=== PATIENT | female | born 1980 | race African-American/Black ===

== ENCOUNTER 2017-03-09 01:01 | Emergency (ER) | payer MEDICARE, MEDICAID ==
[2017-03-09 01:22] LABS: ABSOLUTE EOSINOPHILS # (AUTO) 0.1 10^3/uL (0.0-0.6); ABSOLUTE LYMPHOCYTES (AUTO) 1.8 10^3/uL (0.5-4.7); ABSOLUTE MONOCYTES (AUTO) 0.4 10^3/uL (0.1-1.4); ABSOLUTE NEUT (AUTO) 1.8 10^3/uL (1.7-8.2); BASOPHILS % (AUTO) 0.5 % (0-2); EOSINOPHILS % (AUTO) 1.2 % (0-6); HEMATOCRIT 34.6 % (36.0-47.0); HEMOGLOBIN 10.7 g/dL (12.0-15.5); HGB HCT DIFFERENCE -2.5; LYMPHOCYTES % (AUTO) 45.1 % (13-45); MEAN CORPUSCULAR HEMOGLOBIN 23.4 pg (27.0-33.4); MEAN CORPUSCULAR VOLUME 76 fl (80-97); MONOCYTES % (AUTO) 9.2 % (3-13); RED BLOOD COUNT 4.58 10^6/uL (3.72-5.28); RED CELL DISTRIBUTION WIDTH 16.5 % (11.5-14.0); WHITE BLOOD COUNT 4.1 10^3/uL (4.0-10.5)
[2017-03-09 01:37] LABS: ALANINE AMINOTRANSFERASE 21 U/L (9-52); ALBUMIN 4.4 g/dL (3.5-5.0); ALKALINE PHOSPHATASE 43 U/L (38-126); ANION GAP 11 (5-19); ASPARTATE AMINO TRANSFERASE 19 U/L (14-36); BILIRUBIN,DIRECT 0.2 mg/dL (0.0-0.4); BILIRUBIN,TOTAL 0.3 mg/dL (0.2-1.3); BLOOD UREA NITROGEN 9 mg/dL (7-20); CALCIUM 9.8 mg/dL (8.4-10.2); CARBON DIOXIDE 23 mmol/L (22-30); CHLORIDE 105 mmol/L (98-107); CREATININE RESULT 1.09 mg/dL (0.52-1.25); GLUCOSE 127 mg/dL (75-110); LIPASE 128.5 U/L (23-300); POTASSIUM 4.2 mmol/L (3.6-5.0); SODIUM 139.1 mmol/L (137-145); TOTAL PROTEIN 7.5 g/dL (6.3-8.2)
--- NOTE | 2017-03-09 01:47 | ER Document Report ---
ED GI/ - General Chief Complaint: Abdominal Pain Stated Complaint: ABDOMINAL PAIN Time Seen by Provider: 03/09/17 01:46 Mode of Arrival: Ambulatory Information source: Patient Notes: 36-year-old female complaining of lower abdominal pain since Wednesday. It is persistent and waxes and wanes. Some vaginal discharge without odor. No urinary frequency urgency. No fever or chills. No nausea vomiting or diarrhea. No history of ovarian cyst diverticulitis Crohn's or colitis. No abdominal surgeries. TRAVEL OUTSIDE OF THE [place] IN LAST 30 DAYS: No - Related Data Allergies/Adverse Reactions: codeine [Codeine] Allergy (Verified 02/20/14 12:00) hydrocodone bitartrate [From Vicodin] Allergy (Verified 10/03/13 03:44) latex [Latex] Allergy (Verified 10/03/13 03:44) tramadol HCl [From Ultram] Allergy (Verified 10/03/13 03:44) fresh fruit Allergy (Uncoded 02/20/14 12:38) Past Medical History - General Information source: Patient - Social History Smoking Status: Current Every Day Smoker Chew tobacco use (# tins/day): No Frequency of alcohol use: Occasional Drug Abuse: None Lives with: Spouse/Significant other Family History: Other - asthma Patient has suicidal ideation: No Patient has homicidal ideation: No Neurological Medical History: Reports: Hx Migraine Renal/ Medical History: Denies: Hx Peritoneal Dialysis Surgical Hx: Negative - Immunizations Immunizations up to date: Yes Hx Diphtheria, Pertussis, Tetanus Vaccination: Yes Review of Systems - Review of Systems Constitutional: No symptoms reported EENT: No symptoms reported Cardiovascular: No symptoms reported Respiratory: No symptoms reported Gastrointestinal: No symptoms reported Genitourinary: No symptoms reported Female Genitourinary: See HPI Musculoskeletal: No symptoms reported Skin: No symptoms reported Hematologic/Lymphatic: No symptoms reported Neurological/Psychological: No symptoms reported Physical Exam - Vital signs Vitals: Temp Pulse Resp BP Pulse Ox 98.0 F 91 16 121/78 100 03/09/17 01:05 03/09/17 01:05 03/09/17 01:05 03/09/17 01:05 03/09/17 01:05 Interpretation: Normal - General General appearance: Appears well, Alert - HEENT Head: Normocephalic, Atraumatic Eyes: Normal Pupils: PERRL Neck: Supple. No: Lymphadenopathy - Respiratory Respiratory status: No respiratory distress Chest status: Nontender Breath sounds: Normal Chest palpation: Normal - Cardiovascular Rhythm: Regular Heart sounds: Normal auscultation Murmur: No - Abdominal Inspection: Normal Distension: No distension Bowel sounds: Normal Tenderness: Tender - Mild pelvis all the way across Organomegaly: No organomegaly - Back Back: Normal, Nontender. No: CVA tenderness - Extremities General upper extremity: Normal inspection, Nontender, Normal color, Normal ROM , Normal temperature General lower extremity: Normal inspection, Nontender, Normal color, Normal ROM , Normal temperature, Normal weight bearing. No: Juni's sign - Neurological Neuro grossly intact: Yes Cognition: Normal Orientation: AAOx4 [place] Coma Scale Eye Opening: Spontaneous [place] Coma Scale Verbal: Oriented Eriberto Coma Scale Motor: Obeys Commands Eriberto Coma Scale Total: 15 Speech: Normal Motor strength normal: LUE, RUE, LLE, RLE Sensory: Normal - Psychological Associated symptoms: Normal affect, Normal mood - Skin Skin Temperature: Warm Skin Moisture: Dry Skin Color: Normal Skin irregularity: negative: Rash Course - Vital Signs Vital signs: Temp Pulse Resp BP Pulse Ox 98.2 F 89 20 118/74 99 03/09/17 01:30 03/09/17 01:30 03/09/17 01:30 03/09/17 01:30 03/09/17 01:30 - Laboratory Result Diagrams: 03/09/17 01:10 03/09/17 01:10 Laboratory results interpreted by me: 03/09/17 03/09/17 03/09/17 01:10 01:10 01:30 Hgb 10.7 L Hct 34.6 L MCV 76 L MCH 23.4 L MCHC 31.0 L RDW 16.5 H Lymphocytes % 45.1 H Est GFR (Non-Af Amer) 57 L Glucose 127 H Urine Protein 30 H Urine Ketones TRACE H Urine Urobilinogen 2.0 H Ur Leukocyte Esterase LARGE H Discharge - Discharge Clinical Impression: Pelvic pain Condition: Good Disposition: HOME, SELF-CARE Instructions: Pelvic Pain ([facility]), Rocephin ([facility]), Azithromycin ([facility]) Additional Instructions: call me tonight after 7 p for the std culture results to er if worse urine culture is pending
[2017-03-09 02:06] LABS: APPEARANCE,URINE CLOUDY; BILIRUBIN,URINE NEGATIVE (NEGATIVE); GLUCOSE, URINE NEGATIVE (NEGATIVE); KETONES,URINE TRACE mg/dL (NEGATIVE); LEUKOCYTE ESTERASE,URINE LARGE (NEGATIVE); NITRITE,URINE NEGATIVE (NEGATIVE); PROTEIN,URINE 30 mg/dL (NEGATIVE); URINE SPECIFIC GRAVITY 1.023
[2017-03-09] MEDS ORDERED: AZITHROMYCIN 250 MG TABLET PO ONE (03:20)
[2017-03-09] MEDS ORDERED: ONDANSETRON 4 MG TAB.RAPDIS PO ONE (03:20)
[2017-03-09] MEDS ORDERED: LIDOCAINE 1% INJ-PF (10 MG/ML) 30 ML SDV INFIL ONE (03:20)
[2017-03-09] MEDS ORDERED: CEFTRIAXONE INJ 250 MG VIAL IM ONE (03:20)
[2017-03-09 04:03] VITALS: BP 125/74
[2017-03-09 04:20] LABS: CHLAM PCR NOT DETECTED (NOT DETECT)
== END 2017-03-09 04:00 | disposition home or self-care (01) ==
LOC: ER 01:01
DX: R10.2 Pelvic and perineal pain (principal); R10.9 Unspecified abdominal pain; F17.200 Nicotine dependence, unspecified, uncomplicated
CPT/HCPCS: 99284; 96372; 36415; 87086; 87210; 83690; 85025; 81025; 87088; 80053; 81001; 87186; 87491; 87591; A9270; J3490; J0696

== ENCOUNTER 2017-10-29 09:37 | Emergency (ER) | payer MEDICARE, MEDICAID ==
[2017-10-29] MEDS ORDERED: CEFTRIAXONE INJ 250 MG VIAL IM ONE (11:07)
[2017-10-29] MEDS ORDERED: IBUPROFEN 600 MG TABLET PO ONE (11:07)
[2017-10-29] MEDS ORDERED: LIDOCAINE 1% INJ-PF (10 MG/ML) 30 ML SDV INJ ONE (11:07)
[2017-10-29] MEDS ORDERED: AZITHROMYCIN 250 MG TABLET PO ONE (11:07)
--- NOTE | 2017-10-29 11:07 | ER Document Report ---
ED GI/ - General Chief Complaint: Vaginal Itching Stated Complaint: ABDOMINAL PAIN Time Seen by Provider: 10/29/17 10:21 Mode of Arrival: Ambulatory Information source: Patient Notes: 37-year-old female presents to ED for complaint of vaginal discharge with a white creamy colored discharge burning frequency and a dental pain on the left upper rear tooth. It is actually tooth #14 TRAVEL OUTSIDE OF THE [place] IN LAST 30 DAYS: No - HPI Patient complains to provider of: Pelvic pain, Vaginal discharge Onset: This afternoon - Dental pain month and a half pelvic pain and vaginal discharge 1-1/2 weeks Timing/Duration: Persistent Quality of pain: Burning, Sharp, Throbbing Severity at maximum: Moderate Severity in ED: Moderate Pain Level: 4 Location: Pelvis, Other - Dental Vaginal bleeding (Compared to normal period): None Associated symptoms: Vaginal discharge, Other - Dental vaginal and pelvic pain Exacerbated by: Movement, Food Relieved by: Denies Similar symptoms previously: Yes - Related Data Allergies/Adverse Reactions: codeine [Codeine] Allergy (Verified 02/20/14 12:00) hydrocodone bitartrate [From Vicodin] Allergy (Verified 10/03/13 03:44) latex [Latex] Allergy (Verified 10/03/13 03:44) tramadol HCl [From Ultram] Allergy (Verified 10/03/13 03:44) fresh fruit Allergy (Uncoded 02/20/14 12:38) Past Medical History - General Information source: Patient - Social History Smoking Status: Current Every Day Smoker Cigarette use (# per day): Yes - 5-7 Chew tobacco use (# tins/day): No Smoking Education Provided: Yes - 4 minutes Frequency of alcohol use: Social Drug Abuse: None Lives with: Friend Family History: Arthritis, Other - asthma Patient has suicidal ideation: No Patient has homicidal ideation: No - Past Medical History Cardiac Medical History: Reports: Hx Hypertension Pulmonary Medical History: Reports: None 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 Neurological Medical History: Reports: Hx Migraine Endocrine Medical History: Reports: None Renal/ Medical History: Reports: None Malignancy Medical History: Reports: None GI Medical History: Reports: None Musculoskeltal Medical History: Reports None Skin Medical History: Reports None Psychiatric Medical History: Reports: None Traumatic Medical History: Reports: None Infectious Medical History: Reports: None Surgical Hx: Negative Past Surgical History: Reports: None - Immunizations Immunizations up to date: Yes Hx Diphtheria, Pertussis, Tetanus Vaccination: Yes Review of Systems - Review of Systems Constitutional: No symptoms reported EENT: Dental problem - 14 Cardiovascular: No symptoms reported Respiratory: No symptoms reported Gastrointestinal: No symptoms reported Genitourinary: Discharge, Other - Pain Female Genitourinary: No symptoms reported Musculoskeletal: No symptoms reported Skin: No symptoms reported Hematologic/Lymphatic: No symptoms reported Neurological/Psychological: No symptoms reported Physical Exam - Vital signs Vitals: Temp Pulse Resp BP Pulse Ox 98.1 F 119 H 20 114/73 100 10/29/17 09:44 10/29/17 09:44 10/29/17 09:44 10/29/17 09:44 10/29/17 09:44 Interpretation: Normal - General General appearance: Appears well, Alert - HEENT Head: Normocephalic, Atraumatic Eyes: Normal Pupils: PERRL Ears: Normal External canal: Normal Tympanic membrane: Normal Sinus: Normal Nasal: Swelling, Clear rhinorrhea Mouth/Lips: Caries Teeth diagram: 1 - Cavity with redness surrounding the tooth tenderness to the tooth - Respiratory Respiratory status: No respiratory distress Chest status: Nontender Breath sounds: Normal Chest palpation: Normal - Cardiovascular Rhythm: Regular Heart sounds: Normal auscultation Murmur: No - Abdominal Inspection: Normal Distension: No distension Bowel sounds: Normal Tenderness: Nontender Organomegaly: No organomegaly - Genitourinary External exam: Normal Speculum exam: Vaginal discharge Notes: Patient self swabbed very minimal drainage noted no bleeding noted - Back Back: Normal, Nontender - Extremities General upper extremity: Normal inspection, Nontender, Normal color, Normal ROM , Normal temperature General lower extremity: Normal inspection, Nontender, Normal color, Normal ROM , Normal temperature, Normal weight bearing. No: Juni's sign - Neurological Neuro grossly intact: Yes Cognition: Normal Orientation: AAOx4 [place] Coma Scale Eye Opening: Spontaneous [place] Coma Scale Verbal: Oriented [place] Coma Scale Motor: Obeys Commands Eriberto Coma Scale Total: 15 Speech: Normal Motor strength normal: LUE, RUE, LLE, RLE Sensory: Normal - Psychological Associated symptoms: Normal affect, Normal mood - Skin Skin Temperature: Warm Skin Moisture: Dry Skin Color: Normal Course - Re-evaluation Re-evalutation: 10/29/17 21:36 Discussed labs with patient and written report of labs given to patient. Patient was treated with azithromycin and Rocephin in the ED. She was instructed to call to the ED for the results of her GC chlamydia but she did not cough. Are negative. Patient was treated for a UTI with Cipro and for trichomonas with Flagyl. - Vital Signs Vital signs: Temp Pulse Resp BP Pulse Ox 98.3 F 74 16 109/68 100 10/29/17 11:49 10/29/17 11:49 10/29/17 11:49 10/29/17 11:49 10/29/17 11:49 - Laboratory Laboratory results interpreted by me: 10/29/17 10:59 Urine Blood SMALL H Urine Urobilinogen 2.0 H Ur Leukocyte Esterase LARGE H Discharge - Discharge Clinical Impression: Pain due to dental caries, Pelvic pain, Vaginal discharge, Trichomonal cervicitis UTI (urinary tract infection) Qualifiers: Urinary tract infection type: site unspecified Hematuria presence: without hematuria Qualified Code(s): N39.0 - Urinary tract infection, site not specified Condition: Stable Disposition: HOME, SELF-CARE Instructions: Family Physicians / Practices Additional Instructions: TOOTHACHE: Your pain is due to dental decay. The tooth must be repaired in order for you to feel better. You will, therefore, be referred to a dentist. We do not have dentists on the staff at [facility]. Severe swelling or drainage around a tooth usually means a dental abscess. This also requires evaluation and treatment by the dentist, but antibiotics may be prescribed while awaiting dental treatment. You should be rechecked immediately if you develop major swelling of the face, increasing pain, a lump in the jaw or gums, headache, difficulty swallowing, or fever. VAGINITIS: Your exam shows that you have vaginitis, a vaginal infection. The infection can be caused by a many different organisms, including trichomonas or Gardnerella. The usual symptoms are vaginal irritation and discharge. The treatment is usually antibiotics such as Flagyl. Laboratory tests can determine which germ is responsible. Use the medication as prescribed. Because this infection can be transmitted sexually, your sexual partner may need to be checked and treated also. If your physician has not discussed this with you, please check before resuming sexual relations. If a culture shows gonorrhea or chlamydia, the infection must be reported to the health department. Call the doctor if you develop pelvic pain, fever, or problems with urination, or if you don't improve as expected. VAGINAL TRICHOMONAS INFECTION: Trichomoniasis is infection of the vagina or male genital tract with Trichomonas vaginalis. It can be asymptomatic or cause urethritis, vaginitis, or occasionally cystitis, epididymitis, or prostatitis. Diagnosis is by microscopic examination of vaginal or prostatic secretions or by urethral culture. Patients and sex partners are treated with metronidazole. T. vaginalis is a flagellated, sexually transmitted protozoan that more often infects women (about 20% of women of reproductive age) than men. Infection may be asymptomatic in either sex, but asymptomatic is the rule for men. In men, protozoa may persist for long periods in the tract without causing symptoms; thus, protozoa may be transmitted unwittingly to sex partners. Trichomoniasis may account for up to 5% of nongonococcal, nonchlamydial urethritis in men in some areas. Co-infection with gonorrhea and other sexually transmitted diseases (STDs) is common. In women, symptoms range from none to copious, yellow-green, frothy vaginal discharge with soreness of the vulva and perineum, dyspareunia, and dysuria. Asymptomatic infection may become symptomatic at any time as the vulva and perineum become inflamed and edema develops in the labia. The vaginal delvalle and surface of the cervix may have punctate, red "strawberry" spots. Urethritis and possibly cystitis may also occur. Men are usually asymptomatic; however, sometimes urethritis results in a discharge that may be transient, frothy, or purulent or that causes dysuria and frequency, usually early in the morning. Often, urethritis is mild and causes only minimal urethral irritation and occasional moisture at the urethral meatus , under the foreskin, or both. Epididymitis and prostatitis are rare complications. Trichomoniasis is suspected in women with vaginitis, in men with urethritis , and in their sex partners. Suspicion is high if symptoms persist after patients have been evaluated and treated for other infections such as gonorrhea and chlamydial, mycoplasmal, and ureaplasmal infections. In women, diagnosis is based on clinical criteria and in-office testing. The saline wet mount is examined microscopically as soon as possible to detect trichomonads.In men, microscopy of urine is insensitive, although occasionally organisms are visible in a first-voided morning specimen or a centrifuged specimen. Cultures of urine and urethral swabs are more sensitive. As with diagnosis of any STD, patients with trichomoniasis should be tested to exclude other common STDs such as gonorrhea and chlamydial infection. Metronidazole or tinidazole 2 g po in a single dose cures up to 95% of women if sex partners are treated simultaneously. Effectiveness of single-dose regimens in men is not as clear, so treatment is typically with metronidazole or tinidazole 500 mg bid for 5 to 7 days. Sex partners should be screened and treated for trichomoniasis and other STDs. If poor adherence to follow-up is likely, treatment can be initiated in sex partners of patients with documented trichomoniasis without confirming the diagnosis in the partner. CEPHALOSPORINS: An antibiotic of the cephalosporin class has been prescribed. This type of antibiotic covers a wide variety of infections, including those of the skin, lungs, middle ear, and urinary tract. This antibiotic is somewhat similar to the penicillin family. In rare cases , a person who is allergic to penicillin will also be allergic to this medication. If you have had a severe allergic reaction to penicillin, and have not taken this antibiotic since that time, notify your doctor. Antibiotics which cover many germs ("broad spectrum" antibiotics) are more likely to cause diarrhea or "yeast" infections. Women prone to vaginal yeast problems may suffer an attack after taking this antibiotic. In infants, oral thrush (white spots "stuck" on the cheek) or yeast diaper rash may result. See your doctor if these problems occur. Call the doctor at once if you develop hives, itching, shortness of breath , or lightheadedness. AZITHROMYCIN: Azithromycin (Zithromax) is a broad spectrum antibiotic in the same class as erythromycin. It can treat a variety of bacterial infections, but is most frequently used for respiratory infections. Azithromycin is extremely long-lasting. It accumulates in body tissues and continues to kill bacteria for many days. In order to improve absorption, Azithromycin should be taken at least one hour before or two hours after a meal. It does not have the same strong tendency to upset the stomach as erythromycin and is usually very well tolerated. Patients who have had a rash or other true allergic reactions to erythromycin should not take this medication. Call if you develop gastrointestinal distress, severe diarrhea, rash, hives, itching, or shortness of breath. METRONIDAZOLE: Metronidazole (Flagyl) has been prescribed. This medication is used to kill a type of bacteria called anaerobes, and protozoan parasites such as trichomonas and Giardia. Flagyl often causes a metallic taste in the mouth and mild nausea. Do not use alcohol in any form with Flagyl (including alcohol in medication elixirs). Flagyl interacts with alcohol to cause flushing, palpitations, headache, stomach cramps, and vomiting. Do not use Flagyl if you are taking Antabuse (disulfiram). Call the doctor at once if you develop rash, shortness of breath, itching, or lightheadedness. PENICILLIN V K: You have been given a prescription for Penicillin VK. Your physician has determined that this is the best antibiotic for your condition. Pen VK can be taken with meals, however more of the antibiotic gets into the bloodstream if it's taken on an empty stomach. Penicillin usually has no side effects. However, allergy to penicillins is common. If you have had an allergic reaction to any drug of the penicillin family, you should never take any other penicillin. Notify your doctor at once if you develop hives, itching, swelling, faintness, or shortness of breath. FOLLOW-UP CARE: You have been referred for follow-up care to the dentists listed below. Call the dentists office for an appointment as you were instructed or within the next two days. If you experience worsening or a significant change in your symptoms, notify the physician immediately or return to the Emergency Department at any time for re-evaluation. [facility] [address] [place], [place] Wednesday mornings, by appointment [facility] [address] [place] [address] [facility] [address] [facility] [address] [place] Emergency Department.C. [facility] [address] [facility] [place] [email or web address] [facility] [address] [place] [address] Wednesday- 8:00am to 5:00 pm Will see patients from other [facility]. Charges based on income and family size and accepts Medicare, Medicaid, and Insurances Will pull molars [facility] [id number] Hours of Operation 8:00 am - 4:30 pm weekdays The following dental offices accept Medicaid: [facility] Dr. Garcia Dr. Dennis Dr. Lei Dr. Coulter Mitchell Smith L[place], and [facility] Dr. Greer ([place]) Dr. Olivo ([place]) [facility] Drs. Dewey ([place]) Dr. Agarwal ([place]) [facility] Dr. Lizama ([place]) Drs. Santa and ([place]) Medicaid Care Line Prescriptions: Ciprofloxacin HCl [Cipro 500 mg Tablet] 500 mg PO BID #20 tablet Penicillin V Potassium [Penicillin Vk 500 mg Tablet] 500 mg PO BID #20 tablet Forms: Smoking Cessation Education, Return to Work
[2017-10-29 11:25] LABS: EPITHELIALS (WET MOUNT) 3+ EPITHELIALS SEEN; RBCS (WET MOUNT) RARE RBCS SEEN; T.VAGINALIS (WET MOUNT) TRICHOMONAS SEEN; WBCS (WET MOUNT) 1+ WBCS SEEN; YEAST (WET MOUNT) NO YEAST SEEN
[2017-10-29] MEDS ORDERED: METRONIDAZOLE 500 MG TABLET PO ONE (11:26)
[2017-10-29 11:28] LABS: APPEARANCE,URINE SLIGHTLY-CLOUDY; BILIRUBIN,URINE NEGATIVE (NEGATIVE); COLOR,URINE YELLOW; GLUCOSE, URINE NEGATIVE (NEGATIVE); KETONES,URINE NEGATIVE (NEGATIVE); LEUKOCYTE ESTERASE,URINE LARGE (NEGATIVE); NITRITE,URINE NEGATIVE (NEGATIVE); PROTEIN,URINE NEGATIVE (NEGATIVE); URINE SPECIFIC GRAVITY 1.018
[2017-10-29] MEDS ORDERED: CIPROFLOXACIN HCL 500 MG TABLET PO ONE (11:32)
[2017-10-29] MEDS ORDERED: LIDOCAINE 2% VISCOUS SOLN 20 ML UDCUP PO ONE (11:32)
[2017-10-29 11:51] VITALS: BP 109/68
[2017-10-29 12:47] LABS: CHLAM PCR NOT DETECTED (NOT DETECT); GON PCR NOT DETECTED (NOT DETECT)
== END 2017-10-29 11:50 | disposition home or self-care (01) ==
LOC: ER 09:37
DX: A59.09 Other urogenital trichomoniasis (principal); N39.0 Urinary tract infection, site not specified; R10.2 Pelvic and perineal pain; K02.9 Dental caries, unspecified; R10.9 Unspecified abdominal pain; N89.8 Other specified noninflammatory disorders of vagina; R35.0 Frequency of micturition; K08.89 Other specified disorders of teeth and supporting structures; F17.210 Nicotine dependence, cigarettes, uncomplicated
CPT/HCPCS: 99406; 99283; 96372; 87086; 87210; 81025; 87088; 81001; 87491; 87591; A9270 ×4; J3490 ×2; J0696

== ENCOUNTER 2018-10-29 20:29 | Observation (INO) | payer MEDICARE, MEDICAID ==
--- NOTE | 2018-10-29 20:43 | ER Document Report ---
ED Medical Screen (RME) - General Chief Complaint: OB Problem (<20wks) Stated Complaint: ABDOMINAL PAIN Time Seen by Provider: 10/29/18 20:37 Notes: 38-year-old female patient LMP 09/07/2018, did a positive test today. She is here to check it out to see if she really is . She reports some occasional pelvic cramps. She has also here for a rash she has had for 2 weeks which is on her arms and chest and she states all over. I have greeted and performed a rapid initial assessment of this patient. A comprehensive ED assessment and evaluation of the patient, analysis of test results and completion of the medical decision making process will be conducted by additional ED providers. TRAVEL OUTSIDE OF THE [place] IN LAST 30 DAYS: No - Related Data Allergies/Adverse Reactions: codeine [Codeine] Allergy (Verified 02/20/14 12:00) hydrocodone bitartrate [From Vicodin] Allergy (Verified 10/03/13 03:44) latex [Latex] Allergy (Verified 10/03/13 03:44) tramadol HCl [From Ultram] Allergy (Verified 10/03/13 03:44) fresh fruit Allergy (Uncoded 02/20/14 12:38) Past Medical History - Past Medical History Cardiac Medical History: Reports: Hx Hypertension Neurological Medical History: Reports: Hx Migraine Renal/ Medical History: Denies: Hx Peritoneal Dialysis - Immunizations Immunizations up to date: Yes Hx Diphtheria, Pertussis, Tetanus Vaccination: Yes Physical Exam - Vital signs Vitals: Temp Pulse Resp BP Pulse Ox 98.1 F 77 16 118/75 100 10/29/18 20:33 10/29/18 20:33 10/29/18 20:33 10/29/18 20:33 10/29/18 20:33 Course - Vital Signs Vital signs: Temp Pulse Resp BP Pulse Ox 98.1 F 77 16 118/75 100 10/29/18 20:33 10/29/18 20:33 10/29/18 20:33 10/29/18 20:33 10/29/18 20:33
[2018-10-29 21:03] LABS: ABSOLUTE LYMPHOCYTES (AUTO) 1.7 10^3/uL (0.5-4.7); ABSOLUTE MONOCYTES (AUTO) 0.2 10^3/uL (0.1-1.4); ABSOLUTE NEUT (AUTO) 2.8 10^3/uL (1.7-8.2); BASOPHILS % (AUTO) 0.3 % (0-2); EOSINOPHILS % (AUTO) 0.7 % (0-6); HEMATOCRIT 36.6 % (36.0-47.0); HEMOGLOBIN 12.4 g/dL (12.0-15.5); LYMPHOCYTES % (AUTO) 36.1 % (13-45); MEAN CORPUSCULAR HEMOGLOBIN 28.1 pg (27.0-33.4); MEAN CORPUSCULAR HGB CONC 33.9 g/dL (32.0-36.0); MEAN CORPUSCULAR VOLUME 83 fl (80-97); MONOCYTES % (AUTO) 4.9 % (3-13); PLATELET COUNT 163 10^3/uL (150-450); RED BLOOD COUNT 4.42 10^6/uL (3.72-5.28); RED CELL DISTRIBUTION WIDTH 14.7 % (11.5-14.0); TOTAL CELLS COUNTED % (AUTO) 100 %; WHITE BLOOD COUNT 4.8 10^3/uL (4.0-10.5)
[2018-10-29 21:11] LABS: APPEARANCE,URINE CLEAR; BILIRUBIN,URINE NEGATIVE (NEGATIVE); COLOR,URINE YELLOW; GLUCOSE, URINE NEGATIVE (NEGATIVE); KETONES,URINE NEGATIVE (NEGATIVE); LEUKOCYTE ESTERASE,URINE NEGATIVE (NEGATIVE); NITRITE,URINE NEGATIVE (NEGATIVE); PROTEIN,URINE NEGATIVE (NEGATIVE); URINE SPECIFIC GRAVITY 1.015; UROBILINOGEN,URINE NEGATIVE mg/dL (<2.0)
[2018-10-29 21:25] LABS: ALANINE AMINOTRANSFERASE 15 U/L (9-52); ALBUMIN 4.8 g/dL (3.5-5.0); ALKALINE PHOSPHATASE 42 U/L (38-126); ANION GAP 10 (5-19); ASPARTATE AMINO TRANSFERASE 22 U/L (14-36); BILIRUBIN,DIRECT 0.2 mg/dL (0.0-0.4); BILIRUBIN,TOTAL 0.3 mg/dL (0.2-1.3); BLOOD UREA NITROGEN 6 mg/dL (7-20); CALCIUM 9.8 mg/dL (8.4-10.2); CARBON DIOXIDE 25 mmol/L (22-30); CHLORIDE 103 mmol/L (98-107); GLUCOSE 107 mg/dL (75-110); POTASSIUM 3.8 mmol/L (3.6-5.0); SODIUM 137.8 mmol/L (137-145); TOTAL PROTEIN 7.5 g/dL (6.3-8.2)
--- NOTE | 2018-10-29 22:36 | RADIOLOGY REPORT (SQ) ---
EXAM DESCRIPTION: US TRANSVAGINAL COMPLETED DATE/TME: 10/29/2018 21:50 CLINICAL HISTORY: 38 years, Female, lower ab pain, preg COMPARISON: None. TECHNIQUE: Transverse and longitudinal transvaginal sonographic images in a first retrocardiac patient's LIMITATIONS: None. FINDINGS: The uterus measures 9.4 x 7.2 x 5.8 cm. The myometrium is homogenous. The endometrium is heterogeneous in echotexture measuring 1.7 cm in thickness. There is no visible intrauterine gestation. The right ovary measures 3.5 x 3.5 x 2.5 cm, the left 3.3 x 2.1 x 2.3 cm. There is an ectopic associated with the right ovary/adnexa with a visible yolk sac and pole. [place]-rump length is 0.38 cm correlating to a 6 week 0 day gestation. Heart tones were obtained at 113 bpm. No free fluid. Normal flow to each ovary. IMPRESSION: Findings consistent with ectopic of the right ovary, with a visible extrauterine gestational sac, pole, and yolk sac. heart tones were also obtained. Ultrasound age 6 weeks 0 days. copyright 2010 [employer]- All Rights Reserved
[2018-10-29] MEDS ORDERED: NORMAL SALINE 1000 ML 1,000 ML IV ONE (23:20)
--- NOTE | 2018-10-29 23:22 | ER Document Report ---
ED General - General Chief Complaint: OB Problem (<20wks) Stated Complaint: ABDOMINAL PAIN Time Seen by Provider: 10/29/18 20:37 Notes: Patient is a 38-year-old female LMP 09/17 who presents complaining of intermittent lower abdominal cramping and having a positive test at home. The patient states that she wants to confirm that she is indeed . She states that she had some mild, cramping, aching lower abdominal pain earlier but that has since resolved. Nothing seems to improve or worsen the pain. Denies any history of previous comp occasions during her prior pregnancies. No history of PID. She denies any vaginal bleeding or discharge. She has not established care for this . TRAVEL OUTSIDE OF THE [place] IN LAST 30 DAYS: No - Related Data Allergies/Adverse Reactions: codeine [Codeine] Allergy (Verified 02/20/14 12:00) hydrocodone bitartrate [From Vicodin] Allergy (Verified 10/03/13 03:44) latex [Latex] Allergy (Verified 10/03/13 03:44) tramadol HCl [From Ultram] Allergy (Verified 10/03/13 03:44) fresh fruit Allergy (Uncoded 02/20/14 12:38) Past Medical History - General Information source: Patient Last Menstrual Period: 09/07/19 - Social History Smoking Status: Current Every Day Smoker Chew tobacco use (# tins/day): No Frequency of alcohol use: None Drug Abuse: None Lives with: Family Family History: Arthritis, Other - asthma Patient has suicidal ideation: No Patient has homicidal ideation: No - Past Medical History Cardiac Medical History: Reports: Hx Hypertension Neurological Medical History: Reports: Hx Migraine Renal/ Medical History: Denies: Hx Peritoneal Dialysis - Immunizations Immunizations up to date: Yes Hx Diphtheria, Pertussis, Tetanus Vaccination: Yes Review of Systems - Review of Systems Notes: Constitutional: Negative for fever. HENT: Negative for sore throat. Eyes: Negative for visual changes. Cardiovascular: Negative for chest pain. Respiratory: Negative for shortness of breath. Gastrointestinal: Positive for lower abdominal pain Genitourinary: Negative for dysuria. Musculoskeletal: Negative for back pain. Skin: Negative for rash. Neurological: Negative for headaches, weakness or numbness. 10 point ROS negative except as marked above and in HPI. Physical Exam - Vital signs Vitals: Temp Pulse Resp BP Pulse Ox 98.1 F 77 16 118/75 100 10/29/18 20:33 10/29/18 20:33 10/29/18 20:33 10/29/18 20:33 10/29/18 20:33 Interpretation: Normal Notes: PHYSICAL EXAMINATION: GENERAL: Well-appearing, well-nourished and in no acute distress. HEAD: Atraumatic, normocephalic. EYES: Pupils equal round and reactive to light, extraocular movements intact, sclera anicteric, conjunctiva are normal. ENT: nares patent, oropharynx clear without exudates. Moist mucous membranes. NECK: Normal range of motion, supple without lymphadenopathy LUNGS: Breath sounds clear to auscultation bilaterally and equal. No wheezes rales or rhonchi. HEART: Regular rate and rhythm without murmurs ABDOMEN: Soft, nontender, normoactive bowel sounds. No guarding, no rebound. No masses appreciated. EXTREMITIES: Normal range of motion, no pitting or edema. No cyanosis. NEUROLOGICAL: No focal neurological deficits. Moves all extremities spontaneously and on command. PSYCH: Normal mood, normal affect. SKIN: Warm, Dry, normal turgor, no rashes or lesions noted. Course - Re-evaluation Re-evalutation: 10/29/18 23:21 Patient presents with intermittent lower abdominal cramping none present currently with concerns of a positive home test. Patient's last menstrual period was 09/17. Transvaginal ultrasound was obtained given history of lower abdominal discomfort as well as elevated quantitative hCG. This unfortunately did reveal a right ovarian ectopic with heart rate. I did disclose this to the patient and informed her that I would require operative management. Last ate around 9 PM[address] I did contact Dr. Herndon the MANAGER GYN orientation & mobility specialist who will come to evaluate the patient. 10/30/18 01:22 Dr. Herndon has accepted the patient. Patient was initially threatened to leave [facility] but has been convinced to stay. - Vital Signs Vital signs: Temp Pulse Resp BP Pulse Ox 98.1 F 77 16 118/75 100 10/29/18 20:33 10/29/18 20:33 10/29/18 20:33 10/29/18 20:33 10/29/18 20:33 - Laboratory Result Diagrams: 10/29/18 20:47 10/29/18 20:47 Laboratory results interpreted by me: 10/29/18 10/29/18 10/29/18 20:47 20:47 20:47 RDW 14.7 H BUN 6 L Beta HCG, Quant 3485.50 H Urine Blood SMALL H - Diagnostic Test Radiology reviewed: Reports reviewed Discharge - Discharge Clinical Impression: Ectopic of ovary Qualifiers: Intrauterine status: with intrauterine Laterality: right Qualified Code(s): O00.211 - Right ovarian with intrauterine Condition: Fair Disposition: ADMITTED INPATIENT Admitting Provider: [facility] Admitted: Post
[2018-10-30] MEDS ORDERED: SUCCINYLCHOLINE CHLORIDE INJ 200 MG/10 ML VIAL ONE (09:12)
[2018-10-30] MEDS ORDERED: ONDANSETRON HCL INJ/PF 4 MG/2 ML SDV ONE (09:12)
[2018-10-30] MEDS ORDERED: LIDOCAINE 2% INJ-PF (20 MG/ML) 2 ML AMPUL ONE (09:12)
[2018-10-30] MEDS ORDERED: ROCURONIUM BROMIDE INJ 50 MG/5 ML VIAL IV ONE (09:12)
[2018-10-30] MEDS ORDERED: METOCLOPRAMIDE HCL INJ/PF 10 MG/2 ML SDV ONE (09:12)
[2018-10-30] MEDS ORDERED: KETOROLAC TROMETHAMINE 60 MG/2 ML SDV ONE (09:12)
[2018-10-30] MEDS ORDERED: DEXAMETHASONE SOD PHOSPHATE INJ 4 MG/1 ML VIAL ONE (09:12)
[2018-10-30] MEDS ORDERED: LIDOCAINE 1%/EPINEPHRINE INJ 20 ML VIAL ONE (10:22)
[2018-10-30] MEDS ORDERED: EPHEDRINE SULFATE INJ 50 MG/1 ML AMPULE ONE (10:31)
[2018-10-30] MEDS ORDERED: ACETAMINOPHEN 1,000 MG/100 ML RTUPB IV ONE (10:31)
[2018-10-30] MEDS ORDERED: PROPOFOL INJ 200 MG/20 ML VIAL IV ONE (10:31)
[2018-10-30] MEDS ORDERED: FENTANYL CITRATE INJ/PF 250 MCG/5 ML AMPULE ONE (10:31)
[2018-10-30] MEDS ORDERED: MIDAZOLAM 2 MG/2 ML INJ ONE (10:31)
--- NOTE | 2018-10-30 10:32 | HISTORY AND PHYSICAL E ---
History and Physical NAME: EMRE HAJI : 1980 AGE: 38Y ADMITTED: 10/30/2018 ROOM: 205 HISTORY OF PRESENT CONDITION: The patient is a 38-year-old, 4, para 3, last menstrual period September 07, 2048 who presented to the emergency room for a test and was found to have a beta of 3485 with an ultrasound that revealed a right ectopic with a heart beat. Patient states she did have abdominal pain 2 to 3 days ago that has since resolved. Her RH status is pending at the time of this dictation. MEDICAL/SURGICAL HISTORY: Negative. OB HISTORY: Normal spontaneous vaginal delivery x3 2000, 2005, and 2013. MEDICATIONS: None. ALLERGIES: HYDROCODONE, LATEX, TRAMADOL, FRESH FRUITS. FAMILY HISTORY: Noncontributory. SOCIAL HISTORY: Patient states she uses marijuana on a daily basis and smokes a half pack of cigarettes a day x20 years. She denies ethanol or other drug use. REVIEW OF SYSTEMS: All systems reviewed and were negative other than what is noted in the history of present condition. PHYSICAL EXAMINATION: VITALS: Afebrile, stable. GENERAL: A well-developed, well-nourished young female in no acute distress. HEENT: Head: Normocephalic, atraumatic. Eyes: Pupils equal, round, and react to light and accommodate. Extraocular movements intact. Ears: Both TMs visible with good landmarks. Nose: Moist mucosa, midline septum. Throat: Normal pharynx. Good dentition. NECK: Supple. No adenopathy. No thyromegaly. LUNGS: Clear to auscultation bilaterally. HEART: Regular rate and rhythm. No murmurs. ABDOMEN: Soft. Nontender. No masses. No organomegaly. MUSCULOSKELETAL: Good range of motion all joints. Good strength. No CVA tenderness. NEUROLOGIC: Grossly intact, without focal deficits. EXTREMITIES: Distal pulses are symmetrical bilaterally. No edema. Nontender. PELVIC: Deferred. IMPRESSION/PLAN: RIGHT ECTOPIC . Long discussion with patient regarding laparoscopy with right salpingectomy, possible right oophorectomy, possible laparotomy. All questions answered. Patient is unsure if she desires to proceed with this procedure. We will admit and she will think about it. DICTATING PHYSICIAN: JAITN HAQ M.D. [id number] PHY#: [id number] ID: [id number] JOB#: [id number] ACCT: [id number] cc:Maximino SEAMAN
[2018-10-30] MEDS ORDERED: SUGAMMADEX SODIUM 200 MG/2 ML SDV IV ONE (11:30)
[2018-10-30] MEDS ORDERED: MORPHINE SULFATE 10 MG/ML INJ IV PRN ×2 (11:52→12:16)
[2018-10-30] MEDS ORDERED: MEPERIDINE HCL/PF INJ 25 MG/1 ML DISP.SYRIN IV PRN (11:52)
[2018-10-30] MEDS ORDERED: PROMETHAZINE HCL INJ 25 MG/1 ML VIAL IV PRN ×2 (11:52)
[2018-10-30] MEDS ORDERED: FENTANYL CITRATE INJ/PF 100 MCG/2 ML AMPUL IV PRN ×3 (11:52)
[2018-10-30] MEDS ORDERED: DIPHENHYDRAMINE HCL 50 MG/ML VIAL IV PRN (11:52)
[2018-10-30] MEDS ORDERED: DEXMEDETOMIDINE INJ 80 MCG/20 ML VIAL IV ONE (12:06)
[2018-10-30] MEDS ORDERED: RINGERS SOLUTION,LACTATED 1,000 ML IV PRN (12:14)
[2018-10-30] MEDS: FENTANYL CITRATE INJ/PF 100 MCG/2 ML AMPUL ONE ×2 (12:14→12:18)
[2018-10-30] MEDS ORDERED: OXYCODONE-ACETAMINOPHEN 5-325 MG TABLET PO PRN (12:15)
[2018-10-30] MEDS ORDERED: IBUPROFEN 800 MG TABLET PO PRN (12:15)
[2018-10-30 16:32] VITALS: BP 97/55
--- NOTE | 2018-11-01 10:17 | OPERATIVE REPORT E ---
Operative Report NAME: EMRE HAJI : 1980 AGE: 38Y DATE OF SURGERY: 10/30/2018 ROOM: 205 PREOPERATIVE DIAGNOSIS: Right ectopic . POSTOPERATIVE DIAGNOSIS: Right ectopic . SURGEON: ANNIE ADAMS M.D. ANESTHESIA: Dr. Hope with general. FINDINGS: Dilated right fallopian tube consistent with ectopic . No hemoperitoneum at this time. Left fallopian tube was completely normal in appearance with a normal-appearing fimbriated end. ESTIMATED BLOOD LOSS: 20 mL. COMPLICATIONS: None. SPECIMENS REMOVED: Right fallopian tube with ectopic . PROCEDURE IN DETAIL: The patient was taken to the operating room and prepared and draped in a normal sterile fashion in the dorsal lithotomy position. Under sterile conditions, an in-and-out cath was performed of approximately 50 mL of clear urine. A sterile speculum was placed in the vagina and the cervix was prepped with Betadine, grasped on the anterior lip with a single-toothed tenaculum and a Hulka clamp was placed through the cervix for uterine manipulation. Speculum was removed, gloves were changed, and attention was turned to the upper portion of the case where an umbilical skin incision was made to accommodate a 5 mm port for the camera and the Veress needle was introduced through this incision. Peritoneal cavity placement was confirmed with free flow of sterile water through the needle and entering initial intra-abdominal pressure of less than 3 mmHg. The abdomen was insufflated with approximately 2.5 L of CO2 gas. The Veress needle was removed and the 5 mm trocar was placed at the umbilicus. The camera was introduced and the patient was placed in Trendelenburg and the above findings were noted. Under direct visualization, a 10 mm port was placed in the left lower quadrant. A 5 mm port was then placed in the right lower quadrant, again under direct visualization. The bowel was swept away with a blunt probe and an atraumatic grasper was used to elevate the right fallopian tube. The LigaSure was then introduced at the left port, and beginning at the uterine corpus, the fallopian tube was then removed using the LigaSure without difficulty. The ovary was inspected and a small corpus luteal cyst was noted. The fimbriated end was completely removed with the fallopian tube. The fallopian tube was then removed through the 10 mm port. The rest of the abdomen was inspected. The appendix was normal in appearance. The camera was then scanned up to the liver and there was extensive adhesions of the liver consistent with a significant case of [id number]. The peritoneal cavity was once again inspected with the camera and found to be normal again with no hemoperitoneum noted. The lower ports were then removed under direct visualization with good hemostasis noted. The camera was removed and the abdomen was deflated through the umbilical port. The port was then removed and the skin was closed at all 3 sites using 4-0 Vicryl. The patient tolerated the procedure well. Sponge, lap, and needle counts were correct x2. The Hulka clamp was removed at the end of the case and the patient was taken to recovery in stable condition. DICTATING PHYSICIAN: ANNIE ADAMS M.D. [id number] PHY#: [id number] ID: [id number] JOB#: [id number] ACCT: [id number] cc:ANNIE ADAMS M.D. >
== END 2018-10-30 16:15 | disposition home or self-care (01) ==
LOC: ER 20:29 → INTOOBSV 10-30 01:39 → EH 10-30 01:39 → 2N 10-30 02:31
PROVIDERS: ADMIT Obstetrics & Gynecology; ATTEND Obstetrics & Gynecology
PROC: 0UT54ZZ Resection of Right Fallopian Tube, Percutaneous Endoscopic Approach (ICD-10-PCS; 2018-10-30)
PROC: 10T24ZZ Resection of Products of Conception, Ectopic, Percutaneous Endoscopic Approach (ICD-10-PCS; principal; 2018-10-30 11:00)
DX: O00.101 Right tubal pregnancy without intrauterine pregnancy (principal); O34.81 Maternal care for other abnormalities of pelvic organs, first trimester; N83.8 Other noninflammatory disorders of ovary, fallopian tube and broad ligament; R21 Rash and other nonspecific skin eruption; K66.0 Peritoneal adhesions (postprocedural) (postinfection); F17.210 Nicotine dependence, cigarettes, uncomplicated; Z91.040 Latex allergy status; Z88.5 Allergy status to narcotic agent; Z91.018 Allergy to other foods
CPT/HCPCS: 99285; 86900; 86901; 36415; 84702; 85025; 80053; 81001; 88305 ×2; 76817; 59151; J2250; J3490 ×5; J1100; J1885; J3010 ×2; J2765; J0330; J2405; J7030; J2704; J0131; G0378

== ENCOUNTER 2019-10-10 11:06 | Emergency (ER) | payer MEDICARE, MEDICAID ==
[2019-10-10 11:13] VITALS: BP 123/77
[2019-10-10] MEDS ORDERED: IBUPROFEN 600 MG TABLET PO ONE (11:14)
[2019-10-10] MEDS ORDERED: PHENAZOPYRIDINE HCL 100 MG TABLET PO ONE (11:14)
--- NOTE | 2019-10-10 11:16 | ER Document Report ---
ED GI/ - General Chief Complaint: Urinary Problem Stated Complaint: URINARY PROBLEM Time Seen by Provider: 10/10/19 11:11 Primary Care Provider: [facility] [Provider Group] - Follow up as needed [facility] [Provider Group] - Follow up as needed [facility] [Provider Group] - Follow up as needed Mode of Arrival: Ambulatory Information source: Patient Notes: 39-year-old female presents to ED for burning frequency urgency and foul- smelling urine for about 3 days. She denies any vaginal discharge or discomfort. She does have pain with urination with a little bit of suprapubic tenderness. TRAVEL OUTSIDE OF THE [place] IN LAST 30 DAYS: No - HPI Patient complains to provider of: Other - Pain burning frequency urgency with urination Onset: Other - Days Timing/Duration: Gradual Quality of pain: Burning Severity at maximum: Mild Severity in ED: Mild Pain Level: 2 Vaginal bleeding (Compared to normal period): None LMP: 09/21/2019 Associated symptoms: Urinary frequency, Urinary urgency, Other - Burning foul smell. denies: Vaginal discharge Exacerbated by: Denies Relieved by: Denies Similar symptoms previously: No Recently seen / treated by doctor: No - Related Data Allergies/Adverse Reactions: codeine [Codeine] Allergy (Verified 10/10/19 11:12) hydrocodone bitartrate [From Vicodin] Allergy (Verified 10/10/19 11:12) latex [Latex] Allergy (Verified 10/10/19 11:12) tramadol HCl [From Ultram] Allergy (Verified 10/10/19 11:12) fresh fruit Allergy (Uncoded 10/10/19 11:12) Past Medical History - General Information source: Patient - Social History Smoking Status: Current Every Day Smoker Cigarette use (# per day): Yes - 8 cig a day Frequency of alcohol use: Occasional Drug Abuse: None Occupation: disabled blind Lives with: Spouse/Significant other Family History: Arthritis, Other - asthma - Past Medical History Cardiac Medical History: Reports: Hx Hypertension - Keratoconus Pulmonary Medical History: Reports: None EENT Medical History: 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 Neurological Medical History: Reports: Hx Migraine Endocrine Medical History: Reports: None Renal/ Medical History: Reports: Hx Ectopic Malignancy Medical History: Reports: None GI Medical History: Reports: None Musculoskeletal Medical History: Reports None Skin Medical History: Reports None Psychiatric Medical History: Reports: None Infectious Medical History: Reports: None Past Surgical History: Reports: Hx Gynecologic Surgery - Right fallopian tube removed - Immunizations Immunizations up to date: Yes Hx Diphtheria, Pertussis, Tetanus Vaccination: Yes Review of Systems - Review of Systems Constitutional: No symptoms reported EENT: No symptoms reported Cardiovascular: No symptoms reported Respiratory: No symptoms reported Gastrointestinal: No symptoms reported Genitourinary: Burning, Dysuria, Frequency, Urgency Female Genitourinary: No symptoms reported Musculoskeletal: No symptoms reported Skin: No symptoms reported Hematologic/Lymphatic: No symptoms reported Neurological/Psychological: No symptoms reported -: Yes All other systems reviewed and negative Physical Exam - Vital signs Vitals: Temp Pulse Resp BP Pulse Ox 98.1 F 92 16 123/77 100 10/10/19 11:10/10/19 11:10/10/19 11:10/10/19 11:10/10/19 11:06 Interpretation: Normal - General General appearance: Appears well, Alert - HEENT Head: Normocephalic, Atraumatic Eyes: Normal Pupils: PERRL - Respiratory Respiratory status: No respiratory distress Chest status: Nontender Breath sounds: Normal Chest palpation: Normal - Cardiovascular Rhythm: Regular Heart sounds: Normal auscultation Murmur: No - Abdominal Inspection: Normal Distension: No distension Bowel sounds: Normal Tenderness: Nontender Organomegaly: No organomegaly - Back Back: Normal, Nontender - Extremities General upper extremity: Normal inspection, Nontender, Normal color, Normal ROM, Normal temperature General lower extremity: Normal inspection, Nontender, Normal color, Normal ROM, Normal temperature, Normal weight bearing. No: Juni's sign - Neurological Neuro grossly intact: Yes Cognition: Normal Orientation: AAOx4 Eriberto Coma Scale Eye Opening: Spontaneous Eriberto Coma Scale Verbal: Oriented [place] Coma Scale Motor: Obeys Commands Eriberto Coma Scale Total: 15 Speech: Normal Motor strength normal: LUE, RUE, LLE, RLE Sensory: Normal - Psychological Associated symptoms: Normal affect, Normal mood - Skin Skin Temperature: Warm Skin Moisture: Dry Skin Color: Normal Course - Vital Signs Vital signs: Temp Pulse Resp BP Pulse Ox 98.1 F 92 16 123/77 100 10/10/19 11:10/10/19 11:10/10/19 11:10/10/19 11:06 10/10/19 11:06 - Laboratory Laboratory results interpreted by me: 10/10/19 11:15 Urine Protein 100 H Urine Blood SMALL H Urine Nitrite (Reflex) POSITIVE H Leukocyte Esterase Rfl LARGE H Discharge - Discharge Clinical Impression: UTI (urinary tract infection) Qualifiers: Urinary tract infection type: acute cystitis Hematuria presence: with hematuria Qualified Code(s): N30.01 - Acute cystitis with hematuria Condition: Stable Disposition: HOME, SELF-CARE Additional Instructions: URINARY TRACT INFECTION: Your evaluation indicates that you have a urinary tract infection. This is due to germs growing in the bladder. This is a common problem. This infection usually responds quickly to antibiotics. Your antibiotic should be taken exactly as prescribed. Drink plenty of fluids -- three to four quarts a day. Occasionally, a bladder anesthetic will be prescribed to help stop the feeling of urgency until the antibiotic has a chance to clear the infection. This may cause your urine to be dark orange. Certain urine infections require a culture. If the doctor obtained a culture, the results will be back in two days. You should call to see if a change in treatment is needed. A repeat urinalysis after you finish treatment is often recommended. The physician will let you know if further testing is required. Call the doctor if you develop fever, chills, flank pain, inability to urinate, or blood in the urine. NITROFURANTOIN (MACRODANTIN, MACROBID): You have received a prescription for nitrofurantoin (Macrodantin). This antibiotic is used for urinary tract infections. Women who are or nursing should notify the physician before taking this medicine. If you have ever had a problem caused by this medication in the past, be sure the physician is aware of it. Common side effects of this medicine include nausea, vomiting, or decreased appetite. Notify your physician if these side effects become severe. Immediately stop this medicine and call the physician if you develop cough, shortness of breath, chest pain, weakness, jaundice (yellow color of the skin and whites of the eyes), or a skin rash. URINARY ANESTHETIC AGENT: You have been given a medication (Pyridium) for urinary tract discomfort. This medicine numbs the lining of the bladder and urethra, resulting in less pain, burning, and urgency. You may take it as needed, according to instructions. When the symptoms resolve, you can stop this medication (be sure to continue any other medications the doctor has given you). This medicine turns the urine a dark orange. It may stain underwear. Occasionally, it can cause nausea. Return for evaluation if there are any unexpected effects, such as itching, hives, or shortness of breath. FOLLOW-UP CARE: If you have been referred to a physician for follow-up care, call the physicians office for an appointment as you were instructed or within the next two days. If you experience worsening or a significant change in your symptoms, notify the physician immediately or return to the Emergency Department at any time for re-evaluation. Prescriptions: Nitrofurantoin/Nitrofuran Mac [Macrobid 100 mg Capsule] 1 tab PO BID #20 capsule Phenazopyridine HCl [Pyridium] 100 mg PO TIDP PRN #15 tablet PRN Reason: Referrals: [facility] [Provider Group] - Follow up as needed [facility] [Provider [facility]] - Follow up as needed [facility] [Provider Group] - Follow up as needed
[2019-10-10 11:45] LABS: APPEARANCE,URINE CLOUDY; BILIRUBIN,URINE NEGATIVE (NEGATIVE); COLOR,URINE YELLOW; GLUCOSE, URINE NEGATIVE (NEGATIVE); KETONES,URINE NEGATIVE (NEGATIVE); PROTEIN,URINE 100 mg/dL (NEGATIVE); URINE SPECIFIC GRAVITY 1.018; UROBILINOGEN,URINE NEGATIVE mg/dL (<2.0)
== END 2019-10-10 12:00 | disposition home or self-care (01) ==
LOC: ER 11:06
DX: N30.01 Acute cystitis with hematuria (principal); F17.211 Nicotine dependence, cigarettes, in remission; I10 Essential (primary) hypertension; Z88.6 Allergy status to analgesic agent; Z88.5 Allergy status to narcotic agent; Z91.040 Latex allergy status; Z91.018 Allergy to other foods
CPT/HCPCS: 99283; 81001; A9270 ×2; J3490

== ENCOUNTER 2019-12-06 17:20 | Emergency (ER) | payer MEDICARE, MEDICAID ==
[2019-12-06] MEDS ORDERED: ONDANSETRON 4 MG TAB.RAPDIS PO ONE (19:13)
--- NOTE | 2019-12-06 19:13 | ER Document Report ---
ED Medical Screen (RME) - General Chief Complaint: Toothache Stated Complaint: TOOTHACHE Time Seen by Provider: 12/06/19 19:09 Primary Care Provider: CORNELIUS OGLESBY DO [Primary Care Provider] - Follow up as needed Notes: HPI: 39-year-old female presenting with 2 primary complaints. Patient complaining of bilateral upper molar pain that has been an ongoing issue. No facial swelling no difficulty swallowing. Patient also reports foul odor to her urine as well as pelvic pain over the last 1 to 2 days. Patient states she took antibiotics for UTI symptoms a month ago and it seemed to resolve the dysuria but she still notices a foul odor with urine. Denies vaginal discharge or bleeding I have greeted and performed a rapid initial assessment of this patient. A comprehensive ED assessment and evaluation of the patient, analysis of test results and completion of the medical decision making process will be conducted by additional ED providers PHYSICAL EXAMINATION: GENERAL: Well-appearing, well-nourished and in mild acute distress. HEAD: Atraumatic, normocephalic. EYES: sclera anicteric, conjunctiva are normal. ENT: Moist mucous membranes. Moderate dental caries to the bilateral upper first and second molars, no trismus NECK: Normal range of motion LUNGS: Normal work of breathing HEART: 2+ radial pulses bilaterally ABD: limited by positioning for exam in triage. Mild tenderness across the supr apubic region on palpation EXTREMITIES: no pitting or edema. No cyanosis. NEUROLOGICAL: No focal neurological deficits. Moves all extremities spontaneously and on command. PSYCH: Normal mood, normal affect. SKIN: Warm, Dry, normal turgor, no rashes or lesions noted. TRAVEL OUTSIDE OF THE [place] IN LAST 30 DAYS: No - Related Data Allergies/Adverse Reactions: codeine [Codeine] Allergy (Verified 12/06/19 18:58) hydrocodone bitartrate [From Vicodin] Allergy (Verified 12/06/19 18:58) latex [Latex] Allergy (Verified 12/06/19 18:58) tramadol HCl [From Ultram] Allergy (Verified 12/06/19 18:58) fresh fruit Allergy (Uncoded 12/06/19 18:58) Past Medical History - Past Medical History Cardiac Medical History: Reports: Hx Hypertension - Keratoconus Neurological Medical History: Reports: Hx Migraine Renal/ Medical History: Reports: Hx Ectopic Past Surgical History: Reports: Hx Gynecologic Surgery - Right fallopian tube removed - Immunizations Immunizations up to date: Yes Hx Diphtheria, Pertussis, Tetanus Vaccination: Yes Physical Exam - Vital signs Vitals: Temp Pulse Resp BP Pulse Ox 98.2 F 59 L 16 118/80 100 12/06/19 17:54 12/06/19 17:54 12/06/19 17:54 12/06/19 17:54 12/06/19 17:54 Course - Vital Signs Vital signs: Temp Pulse Resp BP Pulse Ox 98.2 F 59 L 16 118/80 100 12/06/19 17:54 12/06/19 17:54 12/06/19 17:54 12/06/19 17:54 12/06/19 17:54 Doctor's Discharge - Discharge Referrals: CORNELIUS OGLESBY DO [Primary Care Provider] - Follow up as needed
[2019-12-06 19:56] LABS: APPEARANCE,URINE CLEAR; BILIRUBIN,URINE NEGATIVE (NEGATIVE); COLOR,URINE YELLOW; GLUCOSE, URINE NEGATIVE (NEGATIVE); KETONES,URINE 80 mg/dL (NEGATIVE); LEUKOCYTE ESTERASE,URINE NEGATIVE (NEGATIVE); NITRITE,URINE NEGATIVE (NEGATIVE); PROTEIN,URINE 30 mg/dL (NEGATIVE); URINE SPECIFIC GRAVITY 1.038
[2019-12-06] MEDS ORDERED: PENICILLIN V POTASSIUM 500 MG TABLET PO ONE (22:35)
[2019-12-06] MEDS ORDERED: NAPROXEN 250 MG TABLET PO ONE (22:36)
[2019-12-06 23:03] LABS: BACTERIA (WET MOUNT) 4+ BACTERIA SEEN; EPITHELIALS (WET MOUNT) 3+ EPITHELIALS SEEN; T.VAGINALIS (WET MOUNT) NO TRICHOMONAS SEEN; WBCS (WET MOUNT) 1+ WBCS SEEN; YEAST (WET MOUNT) NO YEAST SEEN
[2019-12-07] MEDS ORDERED: METRONIDAZOLE 500 MG TABLET PO ONE (00:07)
[2019-12-07] MEDS ORDERED: ONDANSETRON ODT 4 MG TAB (6 TAB/ER DISP) PO PRN (00:13)
--- NOTE | 2019-12-07 00:14 | ER Document Report ---
ED General - General Chief Complaint: Abdominal Pain Stated Complaint: TOOTHACHE Time Seen by Provider: 12/06/19 19:09 Primary Care Provider: CORNELIUS OGLESBY DO [Primary Care Provider] - Follow up as needed TRAVEL OUTSIDE OF THE [place] IN LAST 30 DAYS: No - HPI Notes: Patient is a 39-year-old female who presents emergency department for evaluation of dental pain, nausea, vomiting, diarrhea, vaginal discharge and vaginal odor. She states she is had pain in bilateral upper maxillary regions for several weeks. She has significant caries. She started noticing some swelling around the gumline on the right recently. No fevers or chills. She has had nausea or vomiting, but attributes that to something else. She has had 4-5 episodes of nonbloody, nonbilious emesis today. 2-3 episodes of watery diarrhea. She is had some chills after emesis but denies any paresh fevers to her knowledge. She denies any difficulty speaking or swallowing. Breathing with no problems. The patient also states she had some dysuria, was treated for urinary tract infection, the dysuria cleared. She states she had noted a foul odor, thought it was her urine, but thinks now it is her vaginal discharge. She is and is sexually monogamous relationship. - Related Data Allergies/Adverse Reactions: codeine [Codeine] Allergy (Verified 12/06/19 18:58) hydrocodone bitartrate [From Vicodin] Allergy (Verified 12/06/19 18:58) latex [Latex] Allergy (Verified 12/06/19 18:58) tramadol HCl [From Ultram] Allergy (Verified 12/06/19 18:58) fresh fruit Allergy (Uncoded 12/06/19 18:58) Past Medical History - General Information source: Patient - Social History Smoking Status: Current Every Day Smoker Chew tobacco use (# tins/day): No Frequency of alcohol use: Occasional Family History: Arthritis, Other - asthma Patient has suicidal ideation: No Patient has homicidal ideation: No - Past Medical History Cardiac Medical History: Reports: Hx Hypertension - Keratoconus Neurological Medical History: Reports: Hx Migraine Renal/ Medical History: Reports: Hx Ectopic Past Surgical History: Reports: Hx Gynecologic Surgery - Right fallopian tube removed - Immunizations Immunizations up to date: Yes Hx Diphtheria, Pertussis, Tetanus Vaccination: Yes Review of Systems - Review of Systems Constitutional: See HPI EENT: See HPI Gastrointestinal: See HPI Female Genitourinary: See HPI Physical Exam - Vital signs Vitals: Temp Pulse Resp BP Pulse Ox 98.2 F 59 L 16 118/80 100 12/06/19 17:54 12/06/19 17:54 12/06/19 17:54 12/06/19 17:54 12/06/19 17:54 - Notes Notes: Vital signs reviewed, please refer to chart. Head is normocephalic, atraumatic. Pupils equal round, reactive to light. Oral mucosa is moist. Overall dentition is in fair condition. Maxillary molars bilaterally show caries at the gums. Her second maxillary molar on the right shows gingival edema and erythema noted. No fluctuance. No facial edema, erythema, induration. No submandibular adenopathy. Neck is supple without meningismus. Heart is regular rate and rhythm. Lungs are clear to auscultation bilaterally. Abdomen is soft, nontender, normoactive bowel sounds throughout. Extremities without cyanosis, clubbing. Posterior calves are nontender. Peripheral pulses are equal. Skin is warm and dry. Patient is awake, alert, neurological exam is nonfocal. 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 Normal external genitalia. Moderate amount of vaginal discharge is noted with mildly foul odor. Cervix is closed. Course - Re-evaluation Re-evalutation: 12/07/19 00:12 Patient presents emergency department for evaluation. She is treated for possible dental abscess with penicillin. She is given Zofran and tolerated multiple drinks without vomiting here. In regards to her pelvic she declines gonorrhea and Chlamydia treatment at this time. Her wet mount showed large bacteria, consistent with likely bacterial vaginosis. She is given her first dose of Flagyl here. I will send her home with referral to the dental clinic, prescription strength Naprosyn, penicillin, Flagyl, and a sixpack of Zofran. She is to follow-up with primary care, return to the ED with worsening or new concerning symptoms of any sort. She should also see a dentist as soon as possible. - Vital Signs Vital signs: Temp Pulse Resp BP Pulse Ox 98.4 F 59 L 16 105/62 100 12/06/19 22:05 12/06/19 22:05 12/06/19 17:54 12/06/19 22:05 12/06/19 22:05 - Laboratory Laboratory results interpreted by me: 12/06/19 18:40 Urine Protein 30 H Urine Ketones 80 H Urine Blood MODERATE H Urine Urobilinogen 2.0 H Urine Ascorbic Acid 40 H Discharge - Discharge Clinical Impression: Bacterial vaginosis, Abscess, dental, Nausea vomiting and diarrhea Condition: Stable Disposition: HOME, SELF-CARE Instructions: Vomiting ([facility]), Toothache ([facility]), Penicillin V K ([facility]), Vaginosis, Bacterial ([facility]) Additional Instructions: Please take medications as prescribed. Do not drink alcohol while taking the Flagyl. See a dentist as soon as possible. Zofran as needed for severe nausea. Return to the emergency department with worsening or new concerning symptoms of any sort. Referrals: CORNELIUS OGLESBY DO [Primary Care Provider] - Follow up as needed
[2019-12-07 00:30] LABS: CHLAM PCR NOT DETECTED (NOT DETECT)
[2019-12-07 00:32] VITALS: BP 112/77
== END 2019-12-07 00:33 | disposition home or self-care (01) ==
LOC: ER 17:20
DX: N76.0 Acute vaginitis (principal); B96.89 Other specified bacterial agents as the cause of diseases classified elsewhere; K04.7 Periapical abscess without sinus; R11.2 Nausea with vomiting, unspecified; R19.7 Diarrhea, unspecified; F17.200 Nicotine dependence, unspecified, uncomplicated; Z88.6 Allergy status to analgesic agent; Z91.040 Latex allergy status
CPT/HCPCS: 99284; 87210; 81025; 81001; 87491; 87591; A9270 ×5; S0119

== ENCOUNTER 2020-03-02 23:42 | Emergency (ER) | payer MEDICARE, MEDICAID ==
[2020-03-03] MEDS ORDERED: PENICILLIN V POTASSIUM 500 MG TABLET PO ONE (01:02)
--- NOTE | 2020-03-03 01:06 | ER Document Report ---
ED General - General Chief Complaint: Toothache Stated Complaint: TOOTHACHE Primary Care Provider: CORNELIUS OGLESBY DO [Primary Care Provider] - Follow up as needed TRAVEL OUTSIDE OF THE [place] IN LAST 30 DAYS: No - HPI Notes: 39-year-old female no significant medical history presents with vaginal onset gradually worsening constant severe pain to right maxillary molar x few weeks associated with cheek swelling without aggravating or alleviating factors, similar to prior dental caries pain she has had in the past with other teeth but more severe - Related Data Allergies/Adverse Reactions: codeine [Codeine] Allergy (Verified 12/06/19 18:58) hydrocodone bitartrate [From Vicodin] Allergy (Verified 12/06/19 18:58) latex [Latex] Allergy (Verified 12/06/19 18:58) tramadol HCl [From Ultram] Allergy (Verified 12/06/19 18:58) fresh fruit Allergy (Uncoded 12/06/19 18:58) Past Medical History - General Information source: Patient - Social History Smoking Status: Current Every Day Smoker Family History: Arthritis, Other - asthma Patient has homicidal ideation: No - Past Medical History Cardiac Medical History: Reports: Hx Hypertension - Keratoconus Neurological Medical History: Reports: Hx Migraine Renal/ Medical History: Reports: Hx Ectopic Past Surgical History: Reports: Hx Gynecologic Surgery - Right fallopian tube removed - Immunizations Immunizations up to date: Yes Hx Diphtheria, Pertussis, Tetanus Vaccination: Yes Review of Systems - Review of Systems Notes: REVIEW OF SYSTEMS: CONSTITUTIONAL : Denies fever, chills, or sweats. EENT: Denies recent cold/sinus symptoms, denies throat pain CARDIOVASCULAR: Denies chest pain, SUKHDEV RESPIRATORY: Denies cough, denies shortness of breath. GASTROINTESTINAL: Denies abdominal pain, nausea/vomiting. GENITOURINARY: Denies difficulty urinating, painful urination. FEMALE GENITOURINARY: Denies abnormal vaginal bleeding, vaginal discharge. MUSCULOSKELETAL: Denies neck pain, back pain. SKIN: Denies rash or skin lesions. HEMATOLOGIC : Denies easy bruising or bleeding. LYMPHATIC: Denies swollen, enlarged glands. NEUROLOGICAL: Denies headache, denies change in gait. PSYCHIATRIC: Denies anxiety or stress or depression. Physical Exam - Vital signs Vitals: Temp Pulse Resp BP Pulse Ox 98.5 F 66 18 136/81 H 99 03/02/20 23:50 03/02/20 23:50 03/02/20 23:50 03/02/20 23:50 03/02/20 23:50 - Notes Notes: PHYSICAL EXAMINATION: GENERAL: Well-appearing, well-nourished, portable appearing secondary to tooth pain in no acute distress. HEAD: Atraumatic, normocephalic, no significant facial swelling EYES: Pupils equal round and appropriate constriction, sclera anicteric, conjunctiva are normal. ENT: nares patent, moist mucous membranes. Tenderness on palpation of posterior right maxillary molar with visible large cavity and surrounding gum edema NECK: Normal range of motion, supple without lymphadenopathy LUNGS: Normal respiratory rate and effort, speaking in full sentences HEART: Regular rate, no JVD, no lower extremity edema ABDOMEN: Soft, nontender, no guarding, no masses, no CVAT EXTREMITIES: Normal range of motion, no pitting or edema. No cyanosis. NEUROLOGICAL: Awake, alert, conversing appropriately, moves all extremities spontaneously. PSYCH: Normal mood, normal affect. SKIN: Warm, Dry, normal turgor, no rashes or lesions noted. Course - Re-evaluation Re-evalutation: 03/03/20 01:08 Likely dental cavity pain now worse possibly secondary to superinfection/periodontal abscess. 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 Will start on penicillin and given information for reduced rate dental clinics in the area. Gave patient extensive return to ED precautions which she demonstrated understanding of. Ready for discharge. - Vital Signs Vital signs: Temp Pulse Resp BP Pulse Ox 98.5 F 66 18 136/81 H 99 03/02/20 23:59 03/02/20 23:50 03/02/20 23:50 03/02/20 23:50 03/02/20 23:50 Discharge - Discharge Clinical Impression: Jaw pain Condition: Stable Disposition: HOME, SELF-CARE Instructions: Penicillin V K ([facility]) Additional Instructions: Dental Infection or Abscess You likely have an infection, perhaps an abscess (pus formation) of the gum around one of your teeth, which is probably decayed. If there is an abscess, it may drain on its own or it may need to be opened or lanced. Severe swelling or drainage around a tooth usually means a deep dental abscess which usually requires evaluation and treatment by a dentist or oral surgeon. Antibiotics have been prescribed while awaiting dental treatment. If you develop high fever with chills, worsening pain, or increasing swelling in the area, see a dentist or oral surgeon immediately or return to the Emergency Department immediately. Make appointment as soon as possible with one of the reduced rate dentists you have received information regarding. Prescriptions: Penicillin V Potassium [Penicillin Vk 500 mg Tablet] 500 mg PO QID #28 tablet Referrals: CORNELIUS OGLESBY DO [Primary Care Provider] - Follow up as needed
[2020-03-03 01:15] VITALS: BP 123/79
== END 2020-03-03 01:19 | disposition home or self-care (01) ==
LOC: ER 23:42
DX: R68.84 Jaw pain (principal); K08.9 Disorder of teeth and supporting structures, unspecified; F17.200 Nicotine dependence, unspecified, uncomplicated; Z88.6 Allergy status to analgesic agent; Z91.040 Latex allergy status
CPT/HCPCS: 99283; A9270